=== PATIENT | male | born 1945 | race Caucasian/White ===

== ENCOUNTER 2022-03-23 09:19 | Observation (INO) | payer MEDICARE, OTHER ==
[2022-03-22 10:17] LABS: BASOPHILS % 0.2 % (0.0-1.0); EOSINOPHILS % 0.1 % (0.0-6.0); HEMATOCRIT 43.5 % (38.2-49.6); HEMOGLOBIN 13.7 g/dL (14.0-18.0); LYMPHOCYTES # (AUTO) 1.6 (1.0-3.2); LYMPHOCYTES % 11.3 % (18.0-39.1); MEAN CORPUSCULAR HEMOGLOBIN 28.2 pg (28-32); MEAN CORPUSCULAR HGB CONC 31.5 g/dL (31-35); MEAN CORPUSCULAR VOLUME 89.5 fL (81-99); MONOCYTES # (AUTO) 0.7 (0.2-0.8); MONOCYTES % 5.1 % (4.4-11.3); NEUTROPHILS # (AUTO) 11.3 (2.1-6.9); NEUTROPHILS % 82.5 % (38.7-80.0); PLATELET COUNT 457 x10e3/uL (140-360); RED BLOOD COUNT 4.86 x10e6/uL (4.3-5.7); RED CELL DISTRIBUTION WIDTH 15.5 % (11.7-14.4)
[2022-03-22 10:37] LABS: INR 0.99
[2022-03-22 10:38] LABS: PARTIAL THROMBOPLASTIN TIME 24.8 seconds (23.8-35.5)
[2022-03-22 10:45] LABS: ANION GAP 16.1 mmol/L (8-16); CALCIUM 9.5 mg/dL (8.4-10.2); CREATININE, SERUM 1.13 mg/dL (0.72-1.25); POTASSIUM 4.1 mmol/L (3.5-5.1)
[~2022-03-23] VITALS: Ht 180.3 cm; Wt 91.6 kg
[~2022-03-23 09:19] MED LIST: ACETAMIN-CODE12.5 ML PO; AMLODIPINE BESYL5 MG PO; LOSARTAN POTASS25 MG PO; MULTI-VITAMIN1 EACH PO; OFEV150 MG PO; PREDNISONE10 MG PO
[2022-03-23] MEDS ORDERED: Vancomycin IV 1 GM VIAL ONE (09:25)
[2022-03-23] MEDS ORDERED: LIDOCAINE 1% W/EPINEPHRINE 20 ML VIAL ONE (09:25)
[2022-03-23] MEDS ORDERED: THROMBIN FOR SOLN 5,000 UNIT VIAL ONE (09:25)
[2022-03-23] MEDS ORDERED: ACETAMINOPHEN PO (09:34)
[2022-03-23] MEDS ORDERED: LIDOCAINE HCL 2% LOCAL INJ 5 ML SDV VIAL INJ ONE (10:04)
[2022-03-23] MEDS ORDERED: SEVOFLURANE INHAL SOLN 250 ML PEN BTL ONE (10:04)
[2022-03-23] MEDS ORDERED: ROCURONIUM BROMIDE 10 MG/ML 5ML VIAL IV ONE (10:04)
[2022-03-23] MEDS ORDERED: ACETAMINOPHEN 1000 MG/100 ML IV ONE (10:04)
[2022-03-23] MEDS ORDERED: EPHEDRINE SULFATE INJ 50 MG/ML VIAL ONE (10:04)
[2022-03-23] MEDS ORDERED: MIDAZOLAM HCL 2 MG/2 ML VIAL ONE (10:04)
[2022-03-23] MEDS ORDERED: FENTANYL CITRATE/PF 100MCG/2 ML INJ ONE ×2 (10:04→13:31)
[2022-03-23] MEDS ORDERED: LIDOCAINE HCL (LTA) 4 ML SOLN ONE (10:04)
[2022-03-23] MEDS ORDERED: ONDANSETRON HCL INJ 2MG/ML 2ML 2 MG/ML VIAL ONE (10:04)
[2022-03-23] MEDS ORDERED: HYDROCORTISONE SOD SUCCINATE 100 MG VIAL ONE (10:04)
[2022-03-23] MEDS ORDERED: POVIDONE IODINE 0.05% 0.05 % ML PO ONE (10:04)
[2022-03-23] MEDS ORDERED: PROPOFOL IV EMULSION 10 MG/ML 20 ML VIAL ONE (10:04)
[2022-03-23] MEDS ORDERED: SUGAMMADEX SODIUM 200 MG/2 ML VIAL IV ONE (10:04)
[2022-03-23] MEDS ORDERED: HYDROCODON-ACE1 EA12 PO (13:07)
[2022-03-23] MEDS ORDERED: CARISOPRODOL 350 MG TAB PO PRN (13:15)
[2022-03-23] MEDS ORDERED: HYDROMORPHONE 2MG/ML 2 MG/ML ML IV PRN (13:15)
[2022-03-23] MEDS ORDERED: ONDANSETRON HCL INJ 2MG/ML 2ML 2 MG/ML VIAL IV PRN (13:15)
[2022-03-23] MEDS ORDERED: MAGNESIUM/ALUMINUM/SIMETHICONE 30 ML UDC PO PRN (13:15)
[2022-03-23] MEDS ORDERED: PROMETHAZINE HCL (IM) 25 MG/ML VIAL IM PRN (13:15)
[2022-03-23] MEDS ORDERED: ZOLPIDEM TARTRATE 5 MG TAB PO PRN (13:15)
[2022-03-23] MEDS ORDERED: ACETAMINOPHEN 325 MG TAB PO PRN (13:15)
[2022-03-23] MEDS ORDERED: MORPHINE SULFATE 5 MG/ML VIAL IM PRN (13:15)
[2022-03-23 14:31] VITALS: BP 128/88
[2022-03-23 14:40] VITALS: BP 128/88
[2022-03-23] MEDS: OXYCODONE/ACETAMINOPHEN 5-325 1 EACH TABLET PO PRN ×2 (14:48→19:03)
[2022-03-23] MEDS: LACTATED RINGER'S 1,000 ML IV SCH ×2 (14:58→21:35)
[2022-03-23 15:50] VITALS: BP 147/100
[2022-03-23 20:00] VITALS: BP_SYST 116; BP_SYST 147; BP_DIAS 100; BP_DIAS 73
[2022-03-23] MEDS: NINTEDANIB PO SCH (21:03)
[2022-03-24] VITALS: BP 141/90
[2022-03-24 04:00] VITALS: BP 148/91
[2022-03-24] MEDS: LACTATED RINGER'S 1,000 ML IV SCH (05:55)
[2022-03-24] MEDS: OXYCODONE/ACETAMINOPHEN 5-325 1 EACH TABLET PO PRN ×2 (06:48→12:33)
[2022-03-24 08:14] VITALS: BP 131/83
[2022-03-24] MEDS ORDERED: MULTIVITAMINS/MINERALS TAB PO SCH (09:00)
[2022-03-24] MEDS ORDERED: AMLODIPINE BESYLATE 5 MG TAB PO SCH (09:00)
[2022-03-24] MEDS ORDERED: LOSARTAN POTASSIUM 25 MG TAB PO SCH (09:00)
[2022-03-24] MEDS: NINTEDANIB PO SCH (09:00)
[2022-03-24] MEDS ORDERED: PREDNISONE 10 MG TAB PO SCH (09:00)
[2022-03-24 09:07] VITALS: BP 131/83
[2022-03-24 12:05] VITALS: BP 142/87
== END 2022-03-24 15:37 | disposition home or self-care (01) ==
LOC: OR 09:19 → PACU V 13:47 → MED/SURG 14:11
PROVIDERS: ADMIT Neurological Surgery; ATTEND Neurological Surgery
DX: M51.16 Intervertebral disc disorders with radiculopathy, lumbar region (principal); J84.10 Pulmonary fibrosis, unspecified; Z01.810 Encounter for preprocedural cardiovascular examination; Z01.812 Encounter for preprocedural laboratory examination; Z01.818 Encounter for other preprocedural examination; Z20.822 Contact with and (suspected) exposure to COVID-19
CPT/HCPCS: 36415; 63056; 71046; 72020; 80048; 85025; 85610; 85730; 86850; 86900; 88304; 88311; 93005; 97116; 97161; G0378 ×2; J0131; J0690 ×2; J1720; J2001; J2250; J2405; J2704; J3010; J3370; J7121; U0002; J7512